=== PATIENT | male | born 1990 | race Caucasian/White ===

== ENCOUNTER 2017-01-01 21:36 | Emergency (ER) | payer OTHER ==
[~2017-01-01] VITALS: Ht 177.8 cm; Wt 119.5 kg
[2017-01-01 21:47] VITALS: TEMP 37.1; Ht 177.8 cm; Wt 119.5 kg
[2017-01-01] MEDS ORDERED: SODIUM CHLORIDE 0.9% 1000ML 1,000 ML IV STA (22:06)
--- NOTE | 2017-01-01 22:09 | EMERGENCY ROOM VISIT NOTE ---
History First contact with patient: 21:55 Chief Complaint: FLANK PAIN Stated Complaint: FLANK PAIN ON BOTH SIDES,TROUBLE URINATING History of Present Illness The patient is a 26 year old male who presents to the Emergency Room with complaints of bilateral flank pain, urinary frequency, urgency, dysuria, hematuria. The patient states he has had flank pain for approximately 2 weeks. He states that 3 days ago he noticed some blood in his urine. He states he has had dysuria and urinary frequency. He reports discomfort in the bilateral flank. The patient states that he had a similar episode approximately 4 years ago in which he had urinary retention. He was placed on antibiotics and given a catheter but did not have any formal evaluation and did not see a urologist. He denies any history of kidney stone. He rates his discomfort as 6/10. He denies any fevers, chills, earache, sore throat or cough. He denies any pain in his chest or trouble breathing. He denies any testicular pain or swelling. He denies any diarrhea or constipation. He denies any penile discharge or rash. He denies any concern for sexual transmitted infection. Review of Systems A 10 system review of systems was completed with positives and pertinent negatives listed in the HPI. Past Medical/Surgical History Medical Problems: (1) Asthma Social History Smoking Status: Never Smoker Current/Historical Medications Scheduled PRN Albuterol Hfa (Ventolin Hfa), 2 PUFFS INH Q6H PRN for SOB/Wheezing Physical Exam Vital Signs Date Time Temp Pulse Resp B/P (MAP) Pulse Ox O2 Delivery O2 Flow Rate FiO2 01/02/17 00:22 79 18 148/89 98 01/01/17 22:49 83 16 166/99 96 Room Air 01/01/17 21:47 37.1 83 19 160/94 97 Room Air Physical Exam VITALS: Vitals are noted on the nurse's note and reviewed by myself. Vital signs stable. The patient is afebrile. GENERAL: This is a 26-year-old male, in no acute distress, nondiaphoretic, well- developed well-nourished. SKIN: The skin was without rashes, erythema, edema, or bruising. There is no tenting of the skin. Capillary reflex less than 2 seconds. HEAD: Normocephalic atraumatic. EARS: External ears are normal appearance. EYES: Pupils equal round and reactive to light and accommodation. Conjunctivae without injection, sclerae without icterus. Extraocular movements intact. NOSE: Patent, turbinates without inflammation or discharge. MOUTH: Mucous membranes moist. Tonsils are not enlarged. Pharynx without erythema or exudate. Uvula midline. Airway patent. Tongue does not deviate. NECK: Supple without nuchal rigidity. No lymphadenopathy. No thyromegaly. Cervical spine is nontender. No JVD. HEART: Regular rate and rhythm without murmurs gallops or rubs. LUNGS: Clear to auscultation bilaterally without wheezes, rales or rhonchi. No retractions or accessory muscle use. ABDOMEN: Positive bowel sounds x 4. Soft, nontender, without masses or organomegaly. There is no CVA tenderness. MUSCULOSKELETAL: No muscle atrophy, erythema, or edema noted. Full range of motion in all extremities. Strength 5/5 throughout. NEURO: Patient was alert and oriented to person place and time. No focal neurological deficits. Medical Decision & Procedures ER Provider Diagnostic Interpretation: ABD/PELVIS WITHOUT FOR STONE CT DOSE: 1664.41 mGy.cm HISTORY: Flank pain. Hematuria. flank pain, hematuria TECHNIQUE: Multiaxial CT images of the abdomen and pelvis were performed without the use of intravenous and oral contrast according to the standard department stone protocol. A dose lowering technique was utilized adhering to the principles of ALARA. COMPARISON STUDY: None. FINDINGS: Lung bases are clear. Liver spleen and pancreas are unremarkable. There are 2 3 mm nonobstructing calcifications mid pole right kidney. Left kidney shows no significant calcifications. There is no evidence for hydronephrosis. The ureters normal in course and caliber. There is no evidence for an obstructing urinary tract calculus. Bowel pattern is nonobstructive. No significant abdominal or pelvic adenopathy. IMPRESSION: 1. Nonobstructive right renal calcifications. 2. No evidence for an obstructing urinary tract calculus. 3. Study is otherwise negative. Laboratory Results 01/01/17 22:24 Red Blood Count 5.12, Mean Corpuscular Volume 84.6, Mean Corpuscular Hemoglobin 29.7, Mean Corpuscular Hemoglobin Concent 35.1, Mean Platelet Volume 9.3, Neutrophils (%) (Auto) 63.1, Lymphocytes (%) (Auto) 25.7, Monocytes (%) (Auto) 6.2, Eosinophils (%) (Auto) 4.4, Basophils (%) (Auto) 0.3, Neutrophils # (Auto) 5.91, Lymphocytes # (Auto) 2.41, Monocytes # (Auto) 0.58, Eosinophils # (Auto) 0.41, Basophils # (Auto) 0.03 01/01/17 22:24 Test 01/01/17 22:24 01/01/17 22:40 White Blood Count 9.37 K/uL (4.8-10.8) Red Blood Count 5.12 M/uL (4.7-6.1) Hemoglobin 15.2 g/dL (14.0-18.0) Hematocrit 43.3 % (42-52) Mean Corpuscular Volume 84.6 fL (80-100) Mean Corpuscular Hemoglobin 29.7 pg (25-34) Mean Corpuscular Hemoglobin Concent 35.1 g/dl (32-36) Platelet Count 267 K/uL (130-400) Mean Platelet Volume 9.3 fL (7.4-10.4) Neutrophils (%) (Auto) 63.1 % Lymphocytes (%) (Auto) 25.7 % Monocytes (%) (Auto) 6.2 % Eosinophils (%) (Auto) 4.4 % Basophils (%) (Auto) 0.3 % Neutrophils # (Auto) 5.91 K/uL (1.4-6.5) Lymphocytes # (Auto) 2.41 K/uL (1.2-3.4) Monocytes # (Auto) 0.58 K/uL (0.11-0.59) Eosinophils # (Auto) 0.41 K/uL (0-0.5) Basophils # (Auto) 0.03 K/uL (0-0.2) RDW Standard Deviation 38.0 fL (36.4-46.3) RDW Coefficient of Variation 12.4 % (11.5-14.5) Immature Granulocyte % (Auto) 0.3 % Immature Granulocyte # (Auto) 0.03 K/uL (0.00-0.02) Anion Gap 7.0 mmol/L (3-11) Est Creatinine Clear Calc Drug Dose 134.2 ml/min Estimated GFR () 108.3 Estimated GFR (Non- 93.5 BUN/Creatinine Ratio 16.5 (10-20) Calcium Level 8.9 mg/dl (8.5-10.1) Total Bilirubin 0.3 mg/dl (0.2-1) Aspartate Amino Transf (AST/SGOT) 20 U/L (15-37) Alanine Aminotransferase (ALT/SGPT) 43 U/L (12-78) Alkaline Phosphatase 67 U/L (45-117) Total Protein 7.4 gm/dl (6.4-8.2) Albumin 4.0 gm/dl (3.4-5.0) Globulin 3.4 gm/dl (2.5-4.0) Albumin/Globulin Ratio 1.2 (0.9-2) Lipase 128 U/L (73-393) Urine Color YELLOW Urine Appearance CLOUDY (CLEAR) Urine pH 5.5 (4.5-7.5) Urine Specific [place] 1.021 (1.000-1.030) Urine Protein NEG (NEG) Urine Glucose (UA) NEG (NEG) Urine Ketones NEG (NEG) Urine Occult Blood NEG (NEG) Urine Nitrite NEG (NEG) Urine Bilirubin NEG (NEG) Urine Urobilinogen NEG (NEG) Urine Leukocyte Esterase NEG (NEG) Urine WBC (Auto) 0 /hpf (0-5) Urine RBC (Auto) 0-4 /hpf (0-4) Urine Hyaline Casts (Auto) 0 /lpf (0-5) Urine Epithelial Cells (Auto) 0-5 /lpf (0-5) Urine Bacteria (Auto) NEG (NEG) Medications Administered Medications (Trade) Dose Ordered Sig/Alysha Route Start Time Stop Time Status Last Admin Dose Admin Sodium Chloride 1,000 ml @ 999 mls/hr Q1H1M STAT IV 01/01/17 22:06 01/01/17 23:06 DC 01/01/17 22:06 999 MLS/HR ED Course The patient was seen and examined. Previous visits were reviewed. The patient complaints of dysuria, urinary frequency. There is no evidence for urinary tract infection on urinalysis. CT scan does not reveal any acute abnormality. The patient denies any concern for sexual transmitted infection. The exact etiology of the patient's symptoms are not clear at this time. The patient should follow with urology for further evaluation and management. He should return with any worsening symptoms. The case was discussed with Dr. Sher who agrees with the assessment and treatment plan. Medical Decision DIFFERENTIAL DIAGNOSIS: Hepatitis, cholecystitis, cholangitis, biliary colic, pancreatitis, pneumonia, subdiaphragmatic abscess, appendicitis, inguinal hernia , nephrolithiasis, inflammatory bowel disease, mesenteric adenitis, peptic ulcer disease, GERD, gastritis, pancreatitis, myocardial infarction, pericarditis, ruptured aortic aneurysm, appendicitis, gastroenteritis, bowel obstruction, splenic infarct, diverticulitis, mesenteric ischemia, metabolic, peritonitis, among others. Medication Reconcilliation Current Medication List: was personally reviewed by me Blood Pressure Screening Patient's blood pressure: Elevated blood pressure Blood pressure disposition: Elevated BP felt to be situational Impression Primary Impression: Bilateral flank pain Additional Impression: Dysuria Departure Information Dispostion Home / Self-Care Condition GOOD Referrals No Doctor, Assigned (PCP) Domenico Nascimento D.O. Patient Instructions Dysuria, My [facility] Additional Instructions Contact urology first thing Wednesday to schedule a follow up appointment for further evaluation and management. Return with worsening symptoms, fevers, abdominal pain Problem Qualifiers
--- NOTE | 2017-01-01 22:42 | DIAGNOSTIC IMAGING REPORT ---
ABD/PELVIS WITHOUT FOR STONE CT DOSE: 1664.41 mGy.cm HISTORY: Flank pain. Hematuria. flank pain, hematuria TECHNIQUE: Multiaxial CT images of the abdomen and pelvis were performed without the use of intravenous and oral contrast according to the standard department stone protocol. A dose lowering technique was utilized adhering to the principles of ALARA. COMPARISON STUDY: None. FINDINGS: Lung bases are clear. Liver spleen and pancreas are unremarkable. There are 2 3 mm nonobstructing calcifications mid pole right kidney. Left kidney shows no significant calcifications. There is no evidence for hydronephrosis. The ureters normal in course and caliber. There is no evidence for an obstructing urinary tract calculus. Bowel pattern is nonobstructive. No significant abdominal or pelvic adenopathy. IMPRESSION: 1. Nonobstructive right renal calcifications. 2. No evidence for an obstructing urinary tract calculus. 3. Study is otherwise negative. The above report was generated using voice recognition software. It may contain grammatical, syntax or spelling errors. Electronically signed by: Ryan Michael M.D. 01/01/2017 10:40 PM Dictated Date/Time: 01/01/2017 10:36 PM
[2017-01-01 22:59] LABS: BASO % 0.3 %; BASO ABS # 0.03 K/uL (0-0.2); COMPLETE YES; EOS % 4.4 %; HEMATOCRIT 43.3 % (42-52); IG% 0.3 %; LYMPH % 25.7 %; LYMPH ABS # 2.41 K/uL (1.2-3.4); MEAN CELL VOLUME 84.6 fL (80-100); MEAN CORPUSCULAR HEMOGLOBIN 29.7 pg (25-34); MEAN CORPUSCULAR HGB CONC 35.1 g/dl (32-36); MEAN PLATELET VOLUME 9.3 fL (7.4-10.4); MONO % 6.2 %; NEUT % 63.1 %; PLATELET COUNT 267 K/uL (130-400); RED BLOOD COUNT 5.12 M/uL (4.7-6.1); WHITE BLOOD COUNT 9.37 K/uL (4.8-10.8)
[2017-01-01 23:07] LABS: BUN/CREATININE RATIO 16.5 (10-20); CALCIUM 8.9 mg/dl (8.5-10.1); CREATININE 1.1 mg/dl (0.60-1.40); POTASSIUM 3.9 mmol/L (3.5-5.1)
[2017-01-01 23:10] LABS: ALB/GLOB RATIO 1.2 (0.9-2)
[2017-01-01 23:56] LABS: URINE APPEARANCE CLOUDY (CLEAR); URINE BILIRUBIN NEG (NEG); URINE COLOR YELLOW; URINE EPITHELIAL CELL AUTO 0-5 /lpf (0-5); URINE NITRITE NEG (NEG); URINE PH 5.5 (4.5-7.5); URINE SPECIFIC GRAVITY 1.021 (1.000-1.030); UROBILINOGEN NEG (NEG); ZZUR CULT IF INDIC CLEAN CATCH NO
[2017-01-01 23:58] LABS: MANUAL MICROSCOPIC REQUIRED? NO; REVIEW REQ? NO
[2017-01-02 00:22] VITALS: BP 148/89; PULSE 79; O2SAT 98
[2017-01-03] MEDS ORDERED: VNTHFA/IN INH (23:09)
== END 2017-01-02 00:23 | disposition home or self-care (01) ==
LOC: C.EDB 21:38 → C.EDC 01-02 00:23
DX: R10.30 Lower abdominal pain, unspecified (principal); R30.0 Dysuria; J45.909 Unspecified asthma, uncomplicated

== ENCOUNTER 2017-01-03 21:28 | Emergency (ER) | payer OTHER ==
[~2017-01-03] VITALS: Ht 177.8 cm; Wt 121.1 kg
[2017-01-03 21:43] VITALS: TEMP 36.8; Ht 177.8 cm; Wt 121.1 kg
[2017-01-03] MEDS ORDERED: VNTHFA/IN INH (23:09)
--- NOTE | 2017-01-03 23:13 | EMERGENCY ROOM VISIT NOTE ---
History Report prepared by Sinan: Raheem Zavala Under the Supervision of: Dr. Kristyn Fields D.O. First contact with patient: 22:58 Chief Complaint: URINARY SYMPTOMS Stated Complaint: PAIN BELOW BELLY BUTTON, URGE TO URINATE, BLOATED History of Present Illness The patient is a 26 year old male who presents to the Emergency Room with complaints of persistent difficulty voiding and burning with urination that began roughly 6 days prior to arrival. The patient states that he was having difficulty beginning the void and is unable to maintain a steady flow. He also complains that he began to notice increasing amounts of blood in the urine that started 5 days ago. The amount of blood in the urine increased for several days. The patient has been explaining bilateral flank pain as well. He notes that today, about 2 hours prior to arrival, he felt the need to urinate but was unable to void at all. He then developed some discomfort in his lower abdomen. The patient was in the Emergency Department yesterday for similar symptoms. The patient denies any unusual rashes or unusual lesions in his genital area. He also denies any concern over possible STDs. He claims that he did have similar symptoms multiple years ago when he was in undergraduate school. There were no significant diagnosis made and he never followed up with a urologist, but he did have a catheter placed. He denies headache, change in vision, fevers, chest pain, shortness of breath, nausea, vomiting, diarrhea. He also denies any recent recreational drug use. 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 A total of 10 systems reviewed and were otherwise negative. Past Medical & Surgical Medical Problems: (1) Asthma Dysuria Family History Diabetes mellitus FH: lupus MOTHER Kidney disease Kidney stones Social History Smoking Status: Never Smoker Drug Use: none Marital Status: single Occupation Status: unemployed Current/Historical Medications Scheduled PRN Albuterol Hfa (Ventolin Hfa), 2 PUFFS INH Q6H PRN for SOB/Wheezing Allergies Coded Allergies: No Known Allergies (Unverified , 01/01/17) Physical Exam Vital Signs Date Time Temp Pulse Resp B/P (MAP) Pulse Ox O2 Delivery O2 Flow Rate FiO2 01/04/17 02:32 66 18 137/87 98 01/04/17 01:15 61 18 148/80 97 Room Air 01/03/17 21:43 36.8 85 20 165/116 98 Room Air Physical Exam GENERAL: alert, well appearing, well nourished, no distress, non-toxic EYE EXAM: normal conjunctiva, PERRL and EOM's grossly intact OROPHARYNX: no exudate, no erythema, lips, buccal mucosa, and tongue normal and mucous membranes are moist NECK: supple, no nuchal rigidity, no adenopathy, non-tender LUNGS: Clear to auscultation. Normal chest wall mechanics HEART: no murmurs, S1 normal and S2 normal ABDOMEN: abdomen soft, minimal suprapubic abdominal tenderness to palpation, normo-active bowel sounds, no masses, no rebound or guarding. BACK: Back is symmetrical on inspection and there is no deformity, no midline tenderness, no CVA tenderness. SKIN: no rashes and no bruising UPPER EXTREMITIES: upper extremities are grossly normal. LOWER EXTREMITIES: No pitting edema. NEURO EXAM: Normal sensorium, cranial nerves II-XII intact, normal speech, no weakness of arms, no weakness of legs. Medical Decision & Procedures ER Provider Diagnostic Interpretation: Radiology results have been interpreted by the radiologist and reviewed by me. US RENAL: Right kidney measures 11.8 cm. There is a 4 mm nonobstructive lower pole stone. No hydronephrosis. Left kidney measures 11.1 cm. There is no hydronephrosis. Urinary bladder wall is mildly thickened. Correlate with urinalysis for possible cystitis. Bilateral ureteral jets are seen. Splenomegaly measuring 14.5 cm. Radiologist: Demi Porter M.D. Laboratory Results 01/03/17 23:28 Red Blood Count 5.19, Mean Corpuscular Volume 83.6, Mean Corpuscular Hemoglobin 30.1, Mean Corpuscular Hemoglobin Concent 35.9, Mean Platelet Volume 9.4, Neutrophils (%) (Auto) 67.9, Lymphocytes (%) (Auto) 21.4, Monocytes (%) (Auto) 6.8, Eosinophils (%) (Auto) 3.1, Basophils (%) (Auto) 0.5, Neutrophils # (Auto) 6.90, Lymphocytes # (Auto) 2.17, Monocytes # (Auto) 0.69, Eosinophils # (Auto) 0.32, Basophils # (Auto) 0.05 01/03/17 23:28 Test 01/03/17 23:25 01/03/17 23:28 Urine Color YELLOW Urine Appearance CLEAR (CLEAR) Urine pH 6.5 (4.5-7.5) Urine Specific [place] 1.012 (1.000-1.030) Urine Protein NEG (NEG) Urine Glucose (UA) NEG (NEG) Urine Ketones NEG (NEG) Urine Occult Blood NEG (NEG) Urine Nitrite NEG (NEG) Urine Bilirubin NEG (NEG) Urine Urobilinogen NEG (NEG) Urine Leukocyte Esterase NEG (NEG) White Blood Count 10.16 K/uL (4.8-10.8) Red Blood Count 5.19 M/uL (4.7-6.1) Hemoglobin 15.6 g/dL (14.0-18.0) Hematocrit 43.4 % (42-52) Mean Corpuscular Volume 83.6 fL (80-100) Mean Corpuscular Hemoglobin 30.1 pg (25-34) Mean Corpuscular Hemoglobin Concent 35.9 g/dl (32-36) Platelet Count 260 K/uL (130-400) Mean Platelet Volume 9.4 fL (7.4-10.4) Neutrophils (%) (Auto) 67.9 % Lymphocytes (%) (Auto) 21.4 % Monocytes (%) (Auto) 6.8 % Eosinophils (%) (Auto) 3.1 % Basophils (%) (Auto) 0.5 % Neutrophils # (Auto) 6.90 K/uL (1.4-6.5) Lymphocytes # (Auto) 2.17 K/uL (1.2-3.4) Monocytes # (Auto) 0.69 K/uL (0.11-0.59) Eosinophils # (Auto) 0.32 K/uL (0-0.5) Basophils # (Auto) 0.05 K/uL (0-0.2) RDW Standard Deviation 37.5 fL (36.4-46.3) RDW Coefficient of Variation 12.4 % (11.5-14.5) Immature Granulocyte % (Auto) 0.3 % Immature Granulocyte # (Auto) 0.03 K/uL (0.00-0.02) Anion Gap 10.0 mmol/L (3-11) Est Creatinine Clear Calc Drug Dose 150.1 ml/min Estimated GFR () 123.0 Estimated GFR (Non- 106.2 BUN/Creatinine Ratio 15.6 (10-20) Calcium Level 8.9 mg/dl (8.5-10.1) Laboratory results per my review. Medications Administered Medications (Trade) Dose Ordered Sig/Alysha Route Start Time Stop Time Status Last Admin Dose Admin Tamsulosin HCl (Flomax Cap) 0.4 mg NOW ONCE PO 01/03/17 23:15 01/03/17 23:16 DC 01/03/17 23:29 0.4 MG ED Course 2302: The patient was evaluated in room B7. A complete history and physical exam was performed. 2314: Ordered Flomax 0.4 mg PO. 0204: Upon reevaluation, the patient is feeling better. He feels as though he can empty his bladder, though his stream is still not at normal force. I discussed the findings and the treatment plan with the patient. He verbalizes agreement and understanding. The patient was discharged home. Medical Decision Differential diagnosis: Etiologies such as renal colic, appendicitis, diverticulitis, mesenteric ischemia, aortic pathology, infections, inflammatory bowel disease, PUD, biliary pathology, UTI, as well as others were entertained. Pt able to urinate here, labs/ua/imaging reassuring here. No evidence of infection or obstructive uropathy. Discussed need for f/u with urology, sx to watch/return for, he verbalized understanding and was agreeable with plan. Doubt other GI pathology. Doubt bacteremia/sepsis. Medication Reconcilliation Current Medication List: was personally reviewed by me Blood Pressure Screening Patient's blood pressure: Elevated blood pressure Blood pressure disposition: Elevated BP felt to be situational Impression Primary Impression: Urinary urgency Scribe Attestation The scribe's documentation has been prepared under my direction and personally reviewed by me in its entirety. I confirm that the note above accurately reflects all work, treatment, procedures, and medical decision making performed by me. Departure Information Dispostion Home / Self-Care Referrals No Doctor, Assigned (PCP) Patient Instructions My [facility] Additional Instructions Please follow-up with urology as previously directed. Please do not use alcohol , recreational drugs, or any other [id number] medications in the interim. Please drink plenty of water and continue to monitor urine for any changing color or odor. Please discuss all of her symptoms with urology. If you have any fevers, vomiting, worsening pain, are unable to urinate, notice blood again in your urine, or have any other new concerns, please return the emergency room.
[2017-01-03] MEDS ORDERED: TAMSULOSIN HCL 0.4 MG CAP PO ONE (23:15)
[2017-01-03 23:35] LABS: URINE APPEARANCE CLEAR (CLEAR); URINE BILIRUBIN NEG (NEG); URINE COLOR YELLOW; URINE NITRITE NEG (NEG); URINE PH 6.5 (4.5-7.5); URINE SPECIFIC GRAVITY 1.012 (1.000-1.030); UROBILINOGEN NEG (NEG); ZZUR CULT IF INDIC CLEAN CATCH NO
[2017-01-03 23:38] LABS: MANUAL MICROSCOPIC REQUIRED? NO; REVIEW REQ? NO
[2017-01-03 23:39] LABS: BASO % 0.5 %; BASO ABS # 0.05 K/uL (0-0.2); COMPLETE YES; EOS % 3.1 %; HEMATOCRIT 43.4 % (42-52); IG% 0.3 %; LYMPH % 21.4 %; LYMPH ABS # 2.17 K/uL (1.2-3.4); MEAN CELL VOLUME 83.6 fL (80-100); MEAN CORPUSCULAR HEMOGLOBIN 30.1 pg (25-34); MEAN CORPUSCULAR HGB CONC 35.9 g/dl (32-36); MEAN PLATELET VOLUME 9.4 fL (7.4-10.4); MONO % 6.8 %; NEUT % 67.9 %; PLATELET COUNT 260 K/uL (130-400); RED BLOOD COUNT 5.19 M/uL (4.7-6.1); WHITE BLOOD COUNT 10.16 K/uL (4.8-10.8)
[2017-01-04 00:01] LABS: BUN/CREATININE RATIO 15.6 (10-20); CALCIUM 8.9 mg/dl (8.5-10.1); CREATININE 0.99 mg/dl (0.60-1.40); POTASSIUM 4.2 mmol/L (3.5-5.1)
[2017-01-04 02:32] VITALS: BP 137/87; PULSE 66; O2SAT 98
--- NOTE | 2017-01-04 06:37 | DIAGNOSTIC IMAGING REPORT ---
EXAMINATION: RENAL ULTRASOUND CLINICAL HISTORY: Urinary retention, dysuria. Flank pain. COMPARISON STUDY: CT scan dated 01/01/2017 FINDINGS: The right kidney measures 11.8 cm. The left kidney measures 11.1 cm. There is no evidence of hydronephrosis. There are no renal masses. There is a 4 mm right renal calculus. Bilateral ureteral jets were visualized. There is a post void residual 48 cc. There is borderline bladder wall thickening. The spleen measures 14.5 cm in length. IMPRESSION : 1. 4 mm right renal calculus 2. No evidence of hydronephrosis 3. Splenomegaly Electronically signed by: Jaquan Carrero M.D. 01/04/2017 6:35 AM Dictated Date/Time: 01/04/2017 6:33 AM
== END 2017-01-04 02:33 | disposition home or self-care (01) ==
LOC: C.EDB 21:30
DX: R39.15 Urgency of urination (principal); J45.909 Unspecified asthma, uncomplicated; Z83.3 Family history of diabetes mellitus

== ENCOUNTER 2017-01-16 03:21 | Emergency (ER) | payer OTHER ==
[~2017-01-16] VITALS: Ht 177.8 cm; Wt 123.9 kg
[~2017-01-16 03:21] MED LIST: VNTHFA/IN INH
[2017-01-16 03:25] VITALS: TEMP 36.8; Ht 177.8 cm; Wt 123.9 kg
--- NOTE | 2017-01-16 03:57 | EMERGENCY ROOM VISIT NOTE ---
History First contact with patient: 03:28 Chief Complaint: UNABLE TO VOID Stated Complaint: UNABLE TO URINATE Nursing Triage Summary: pt unable to pee for past 5 hours, seen here and urologist History of Present Illness The patient is a 26 year old male who presents to the Emergency Room with complaints of unable to urinate for the past 5 hours. The patient states that he has had the urge to urinate for the past 5 hours, but has not been able to urinate at all. He states that he has had similar symptoms 2 times before. He has been seen in the emergency department recently and by [facility] urology. He had multiple testing done here was no diagnosis. He was seen at urology and was diagnosed with urethritis and given antibiotics. He finished this prescription 4 days ago and states that he felt better at that time. He states that no testing was done other than a urine sample. He denies any abdominal or back pain. Review of Systems A complete 10 point review of systems was reviewed with the patient with pertinent positives and negatives as per history of present illness. All else were negative. Past Medical/Surgical History Medical Problems: (1) Asthma Family History Diabetes mellitus FH: lupus MOTHER Kidney disease Kidney stones Social History Smoking Status: Never Smoker Drug Use: none Marital Status: single Occupation Status: unemployed Current/Historical Medications Scheduled Sulfa/Trimethoprim (Bactrim Ds 800MG/160MG), 1 TAB PO BID Scheduled PRN Albuterol Hfa (Ventolin Hfa), 2 PUFFS INH Q6H PRN for SOB/Wheezing Physical Exam Vital Signs Date Time Temp Pulse Resp B/P (MAP) Pulse Ox O2 Delivery O2 Flow Rate FiO2 01/16/17 05:24 84 18 129/80 98 Room Air 01/16/17 03:25 36.8 101 18 190/102 96 Room Air Physical Exam VITALS: Vitals are noted on the nurse's note and reviewed by myself. Vital signs stable. GENERAL: This is a 26-year-old male, anxious appearing, pacing around room, well -developed well-nourished. HEART: Regular rate and rhythm without murmurs gallops or rubs. LUNGS: Clear to auscultation bilaterally without wheezes, rales or rhonchi. No dullness to percussion. No retractions or accessory muscle use. ABDOMEN: Positive bowel sounds x 4. No abdominal tenderness. No masses or organomegaly. No CVA tenderness. NEURO: Patient was alert and oriented to person place and time. Medical Decision & Procedures Laboratory Results Test 01/16/17 04:20 Urine Color AICHA Urine Appearance CLOUDY (CLEAR) Urine pH 5.5 (4.5-7.5) Urine Specific [place] 1.020 (1.000-1.030) Urine Protein TRACE (NEG) Urine Glucose (UA) NEG (NEG) Urine Ketones TRACE (NEG) Urine Occult Blood 3+ (NEG) Urine Nitrite NEG (NEG) Urine Bilirubin NEG (NEG) Urine Urobilinogen NEG (NEG) Urine Leukocyte Esterase NEG (NEG) Urine RBC >30 /hpf (0-4) Urine WBC 10-30 /hpf (0-5) Urine Epithelial Cells 5-10 /lpf (0-5) Urine Bacteria 1+ (NEG) Medical Decision Differential diagnosis includes urinary obstruction, urinary tract infection, psychogenic cause, among others. The patient was evaluated as above. Previous records were reviewed. The patient was seen by urology and had a urinalysis in the office. He is scheduled for cystoscopy. A bladder scan was performed and did show some urinary retention. The patient was catheterized by nursing staff and was then able to urinate and fully empty his bladder. Urinalysis is suggestive of possible contamination versus infection, but given the patient's symptoms I will treat him with a course of Bactrim. He was advised to call his urologist to schedule follow-up. He is welcome to return here if he has any worsening or new/concerning symptoms. He verbalized understanding of my assessment is she will plan was discharged home in good condition. Medication Reconcilliation Current Medication List: was personally reviewed by me Blood Pressure Screening Patient's blood pressure: Elevated blood pressure Blood pressure disposition: Elevated BP felt to be situational Impression Primary Impression: Difficulty urinating Departure Information Dispostion Home / Self-Care Condition GOOD Prescriptions Sulfa/Trimethoprim (Bactrim Ds 800MG/160MG) Tab 1 TAB PO BID for 7 Days, #14 TAB Prov: Deanne Vaz ., NAA 01/16/17 Referrals No Doctor, Assigned (PCP) Patient Instructions My [facility] Additional Instructions You were prescribed Bactrim to be taken twice daily as prescribed. This is an antibiotic. All antibiotics have the potential to cause diarrhea. Stop this medication and contact a medical provider if you were to develop any significant adverse side effects including: wheezing, shortness of breath, passing out, vomiting, or a diffuse rash. Always take antibiotics as directed and COMPLETE the ENTIRE course regardless of the improvement of your symptoms. Call urology Wednesday to schedule follow-up. Return to the emergency department with any worsening or new/concerning symptoms.
[2017-01-16 05:00] LABS: MANUAL MICROSCOPIC REQUIRED? YES; URINE APPEARANCE CLOUDY (CLEAR); URINE BILIRUBIN NEG (NEG); URINE COLOR AMBER; URINE NITRITE NEG (NEG); URINE PH 5.5 (4.5-7.5); UROBILINOGEN NEG (NEG)
[2017-01-16 05:15] LABS: REVIEW REQ? NO
[2017-01-16 05:24] VITALS: BP 129/80; PULSE 84; O2SAT 98
[2017-01-16 05:33] LABS: URINE RBC >30 /hpf (0-4)
[2017-01-16 05:39] LABS: URINE BACTERIA 1+ (NEG); ZZURINE CULT IF INDIC CATH YES
[2017-01-16] MEDS ORDERED: SULF800T23 PO (06:00)
== END 2017-01-16 06:08 | disposition home or self-care (01) ==
LOC: C.EDB 03:22
DX: R33.9 Retention of urine, unspecified (principal); R30.0 Dysuria